=== PATIENT | female | born 1975 | race Caucasian/White ===

== ENCOUNTER 2019-06-23 19:06 | Observation (INO) ==
--- NOTE | 2019-06-23 19:59 | Emergency Department Note ---
Disposition Clinical Impression: Atrial fibrillation with RVR Disposition: Admitted As Inpatient Condition: Good Referrals: Keo Mcgovern DO [Primary Care Provider] - Forms: ED Satisfaction Letter Time of Disposition: 21:25 Arrhythmia/Palpitations HPI - General Chief Complaint: ED Arrhythmia/Palpitations Stated Complaint: Heart Flutters, Lightheaded Source: patient Limitations: no limitations Nursing Notes Reviewed: Yes Vital Signs Reviewed: Yes - History of Present Illness HPI Narrative: Patient is a 44-year-old female presented with palpitations. Patient states for the past few days she has been having intermittent episodes of palpitations with associated lightheaded and dizziness. This initially started on Tuesday, she was seen by her primary care provider yesterday and EKG was performed which was negative. She does have history of bigeminy in the past requiring ablation in 2012. She then had similar symptoms today with palpitations lightheaded and dizziness, she was seen at that local [facility] where they diagnosed where her with abdominal heart rhythm and told to go to the ER for further evaluation. Patient denies any chest pain, shortness of breath, fever or chills. She states that she is continuing to have these palpitations at this time. - Related Data Home Medications Medication Instructions Recorded Confirmed Multivit-Min/Iron/Folic Acid/K 1 each PO DAILY 06/23/19 06/23/19 [Adults Multivitamin Caplet] Allergies Allergy/AdvReac Type Severity Reaction Status Date / Time No Known Allergies Allergy Verified 06/23/19 19:28 All systems ED: reviewed and negative except as stated. Review of Systems: As Per HPI Constitutional: Denies: fever, chills Cardiovascular: Reports: palpitations. Denies: chest pain, dyspnea on exertion, syncope Respiratory: Denies: cough, dyspnea, wheezes Gastrointestinal: Denies: abdominal pain, nausea, vomiting Genitourinary: Denies: urgency Musculoskeletal: Denies: back pain Integumentary: Denies: rash Neurological: Denies: headache, confusion Past Medical History - Past Medical History Medical history: Reports: other Psychiatric history: Reports: no psych history - Social History Smoking Status: Never smoker Alcohol use: Reports: rarely Drug use: Reports: none Physical Exam - General Limitations: no limitations General appearance: alert - Head Head exam: atraumatic, normocephalic, normal inspection - Eye Eye exam: Present: normal appearance, PERRL, EOMI - ENT ENT exam: normal exam, normal oropharynx, mucous membranes moist - Neck Neck exam: Present: normal inspection, full ROM, trachea midline - Chest Chest inspection: Present: normal inspection, symmetric chest wall rise - Respiratory Respiratory exam: Present: normal lung sounds bilaterally - Cardiovascular Cardiovascular exam: Present: tachycardia, irregular rhythm - Abdominal Exam Abdominal exam: Present: soft, Non-Tender. Absent: tenderness, distention, guarding, rebound, rigidity - Extremities Exam Extremities exam: Present: normal inspection, full ROM. Absent: tenderness, ped al edema - Expanded Lower Extremity Exam Neurovascular/Tendon exam: Absent: motor deficit, sensory deficit, tendon deficit - Neurological Exam Neurological exam: Present: alert, oriented X3 - Psychiatric Psychiatric exam: Present: normal affect, normal mood - Skin Skin exam: Present: warm, dry, intact, normal color Course Vital Signs Temperature 98.7 F 06/23/19 19:28 Pulse Rate 110 06/23/19 19:28 Respiratory Rate 16 06/23/19 19:28 Blood Pressure 112/73 06/23/19 19:28 O2 Sat by Pulse Oximetry 98 06/23/19 19:28 Temperature 98.7 F 06/23/19 19:28 Pulse Rate 106 06/23/19 21:11 Respiratory Rate 15 06/23/19 21:11 Blood Pressure 104/77 06/23/19 21:11 O2 Sat by Pulse Oximetry 100 06/23/19 21:11 Oxygen Delivery Oxygen Delivery Room Air Arrhythmia/Palpitations - [facility] Narrative Medical decision making narrative: Patient is a 44-year-old female presenting with palpitations. On examination, patient is alert and 3, no acute distress. On EKG it appears the patient is in A. fib with RVR, first a flutter at times. Patient otherwise is normotensive and in no acute distress. Patient appears otherwise stable. Laboratory work including CBC, BMP, TSH and magnesium were performed. These labs were reviewed and unremarkable. Chest x-ray shows no acute intracardiac or pulmonary process. Patient was given a liter of fluids, we will also give the patient 20 of Cardizem as well as to the patient on Cardizem drip. Patient was also given 2 g of magnesium. Patient will be admitted for further cardiac workup as well as continued a drip ablation with RVR. On reevaluation, patients rate appears to be normal sinus rhythm with a rate of 75. Patient appears to be at this point in time out of atrial fibrillation and rate controlled. Patient does remain on her Cardizem drip. - Differential Diagnosis Differential Diagnosis: Likely: palpitations, anxiety, artial arrhythmia, supraventricular tachycardia, metabolic/electrolyte disturbance - Medical Records Medical records reviewed: Yes I reviewed the patient's medical records. - Lab Data Lab results reviewed: Yes I reviewed the patient's lab results. Result diagrams: 06/23/19 20:06 06/23/19 20:06 Lab Results 06/23/19 06/23/19 06/23/19 Range/Units 20:06 20:06 20:06 WBC 5.0 (4.3-11.1) K/mcL RBC 4.61 (3.82-4.97) M/mcL Hgb 15.1 (11.5-15.4) g/dL Hct 44.7 (35.3-44.9) % MCV 97.0 (83.0-100.0) fL MCH 32.8 (28.0-33.3) pg MCHC 33.8 (31.6-35.5) g/dL RDW 11.6 (11.5-14.5) % Plt Count 204 (140-400) K/mcL MPV 10.7 (9.4-12.4) fL Immature Gran % 0.2 (0-4) % Seg Neutrophils % 57.5 % Lymphocytes % 31.4 % Monocytes % 9.1 % Eosinophils % 1.0 % Basophils % 0.8 % Neutrophils # 2.9 (1.6-8.9) K/mcL Lymphocytes # 1.6 (0.6-4.6) K/mcL Monocytes # 0.5 (0.0-1.3) K/mcL Eosinophils # 0.1 (0.0-0.6) K/mcL Basophils # 0.0 (0.0-0.2) K/mcL PT 11.1 (9.4-12.1) Seconds INR 1.0 APTT 30.3 (26.0-36.0) Seconds Sodium 138 (136-145) mEq/L Potassium 3.5 (3.5-5.1) mEq/L Chloride 105 (98-107) mEq/L Carbon Dioxide 25 (23-29) mEq/L BUN 12 (6-20) mg/dL Creatinine 0.71 (0.60-1.20) mg/dL Est GFR ( Amer) > 60 (> 60) Est GFR (Non-Af Amer) > 60 (> 60) BUN/Creatinine Ratio 17 (6-26) Glucose 99 (70-105) mg/dL Calculated Osmolality 286 (280-300) Calcium 9.6 (8.6-10.3) mg/dL Magnesium (1.6-2.6) mg/dL Troponin I < 0.03 (< 0.04) ng/mL TSH 3.895 (0.340-5.600) mcIU/mL 06/23/19 Range/Units 20:06 WBC (4.3-11.1) K/mcL RBC (3.82-4.97) M/mcL Hgb (11.5-15.4) g/dL Hct (35.3-44.9) % MCV (83.0-100.0) fL MCH (28.0-33.3) pg MCHC (31.6-35.5) g/dL RDW (11.5-14.5) % Plt Count (140-400) K/mcL MPV (9.4-12.4) fL Immature Gran % (0-4) % Seg Neutrophils % % Lymphocytes % % Monocytes % % Eosinophils % % Basophils % % Neutrophils # (1.6-8.9) K/mcL Lymphocytes # (0.6-4.6) K/mcL Monocytes # (0.0-1.3) K/mcL Eosinophils # (0.0-0.6) K/mcL Basophils # (0.0-0.2) K/mcL PT (9.4-12.1) Seconds INR APTT (26.0-36.0) Seconds Sodium (136-145) mEq/L Potassium (3.5-5.1) mEq/L Chloride (98-107) mEq/L Carbon Dioxide (23-29) mEq/L BUN (6-20) mg/dL Creatinine (0.60-1.20) mg/dL Est GFR ( Amer) (> 60) Est GFR (Non-Af Amer) (> 60) BUN/Creatinine Ratio (6-26) Glucose (70-105) mg/dL Calculated Osmolality (280-300) Calcium (8.6-10.3) mg/dL Magnesium 2.1 (1.6-2.6) mg/dL Troponin I (< 0.04) ng/mL TSH (0.340-5.600) mcIU/mL - Radiology Data Radiology results reviewed: Yes I reviewed the patient's radiology results. Chest X-Ray 06/23/19 19:32 IMPRESSION: No acute cardiopulmonary disease. D/ / Quintin Gonzalez MD / Quintin Gonzalez MD Interpreting Provider: Quintin Gonzalez MD - EKG Data EKG attestation: Yes I reviewed and interpreted this EKG. EKG results narrative: EKG performed at 1939 ventricular rate of 162, irregularly irregular rhythm with normal axis, no ST segment elevation, there is diffuse depression in lead V2 through V6, most likely rate dependent, with T-wave inversion in V3. Appears to be atrial fibrillation with RVR. When compared to old EKG performed at 2013, this is a significant difference as the EKG shows a 14 was normal sinus rhythm.
[2019-06-23] MEDS ORDERED: 0.9 % Sodium Chloride 1,000 ML IVC ONE (20:08)
[2019-06-23] MEDS: Aspirin 325 MG TABLET PO ONE ×2 (20:23→20:27)
[2019-06-23 20:41] LABS: Basophils % 0.8 %; Eosinophils # 0.1 K/mcL (0.0-0.6); Hematocrit 44.7 % (35.3-44.9); Hemoglobin 15.1 g/dL (11.5-15.4); Immature Granulocytes % 0.2 % (0-4); Lymphocytes # 1.6 K/mcL (0.6-4.6); Lymphocytes % 31.4 %; Mean Corpuscular HGB Conc 33.8 g/dL (31.6-35.5); Mean Corpuscular Hemoglobin 32.8 pg (28.0-33.3); Mean Platelet Volume 10.7 fL (9.4-12.4); Monocytes # 0.5 K/mcL (0.0-1.3); Monocytes % 9.1 %; Neutrophils # 2.9 K/mcL (1.6-8.9); Platelet Count 204 K/mcL (140-400); Red Blood Count 4.61 M/mcL (3.82-4.97); Red Cell Distribution Width 11.6 % (11.5-14.5); Segmented Neutrophils % 57.5 %
[2019-06-23 20:50] LABS: Prothrombin Time 11.1 Seconds (9.4-12.1)
[2019-06-23 20:52] LABS: Activated Partial Thrombo Time 30.3 Seconds (26.0-36.0)
[2019-06-23 20:58] LABS: BUN/Creatinine Ratio 17 (6-26); Blood Urea Nitrogen 12 mg/dL (6-20); Calcium 9.6 mg/dL (8.6-10.3); Carbon Dioxide 25 mEq/L (23-29); Chloride 105 mEq/L (98-107); Glucose 99 mg/dL (70-105); Osmolality,Calculated 286 (280-300); Potassium 3.5 mEq/L (3.5-5.1); Sodium 138 mEq/L (136-145); eGFR For African Americans > 60 (> 60); eGFR For Non-African Americans > 60 (> 60)
--- NOTE | 2019-06-23 20:58 | Emergency Department Note ---
Disposition Clinical Impression: Atrial fibrillation with RVR Disposition: Admitted As Inpatient Condition: Good Referrals: Keo Mcgovern DO [Primary Care Provider] - Forms: ED Satisfaction Letter Time of Disposition: 21:39 Arrhythmia/Palpitations HPI - General Chief Complaint: ED Arrhythmia/Palpitations Stated Complaint: Heart Flutters, Lightheaded Time Seen by Provider: 06/23/19 20:08 Source: patient Limitations: no limitations Nursing Notes Reviewed: Yes Vital Signs Reviewed: Yes - Related Data Home Medications Medication Instructions Recorded Confirmed Multivit-Min/Iron/Folic Acid/K 1 each PO DAILY 06/23/19 06/23/19 [Adults Multivitamin Caplet] Allergies Allergy/AdvReac Type Severity Reaction Status Date / Time No Known Allergies Allergy Verified 06/23/19 19:28 Past Medical History - Past Medical History Medical history: Reports: other Psychiatric history: Reports: no psych history - Social History Smoking Status: Never smoker Alcohol use: Reports: rarely Drug use: Reports: none Physical Exam - General Limitations: no limitations General appearance: alert Course Vital Signs Temperature 98.7 F 06/23/19 19:28 Pulse Rate 110 06/23/19 19:28 Respiratory Rate 16 06/23/19 19:28 Blood Pressure 112/73 06/23/19 19:28 O2 Sat by Pulse Oximetry 98 06/23/19 19:28 Temperature 98.7 F 06/23/19 19:28 Pulse Rate 106 06/23/19 21:11 Respiratory Rate 15 06/23/19 21:11 Blood Pressure 104/77 06/23/19 21:11 O2 Sat by Pulse Oximetry 100 06/23/19 21:11 Oxygen Delivery Oxygen Delivery Room Air Arrhythmia/Palpitations - Lab Data Result diagrams: 06/23/19 20:06 06/23/19 20:06 Lab Results 06/23/19 06/23/19 06/23/19 Range/Units 20:06 20:06 20:06 WBC 5.0 (4.3-11.1) K/mcL RBC 4.61 (3.82-4.97) M/mcL Hgb 15.1 (11.5-15.4) g/dL Hct 44.7 (35.3-44.9) % MCV 97.0 (83.0-100.0) fL MCH 32.8 (28.0-33.3) pg MCHC 33.8 (31.6-35.5) g/dL RDW 11.6 (11.5-14.5) % Plt Count 204 (140-400) K/mcL MPV 10.7 (9.4-12.4) fL Immature Gran % 0.2 (0-4) % Seg Neutrophils % 57.5 % Lymphocytes % 31.4 % Monocytes % 9.1 % Eosinophils % 1.0 % Basophils % 0.8 % Neutrophils # 2.9 (1.6-8.9) K/mcL Lymphocytes # 1.6 (0.6-4.6) K/mcL Monocytes # 0.5 (0.0-1.3) K/mcL Eosinophils # 0.1 (0.0-0.6) K/mcL Basophils # 0.0 (0.0-0.2) K/mcL PT 11.1 (9.4-12.1) Seconds INR 1.0 APTT 30.3 (26.0-36.0) Seconds Sodium 138 (136-145) mEq/L Potassium 3.5 (3.5-5.1) mEq/L Chloride 105 (98-107) mEq/L Carbon Dioxide 25 (23-29) mEq/L BUN 12 (6-20) mg/dL Creatinine 0.71 (0.60-1.20) mg/dL Est GFR ( Amer) > 60 (> 60) Est GFR (Non-Af Amer) > 60 (> 60) BUN/Creatinine Ratio 17 (6-26) Glucose 99 (70-105) mg/dL Calculated Osmolality 286 (280-300) Calcium 9.6 (8.6-10.3) mg/dL Magnesium (1.6-2.6) mg/dL Troponin I < 0.03 (< 0.04) ng/mL TSH 3.895 (0.340-5.600) mcIU/mL 06/23/19 Range/Units 20:06 WBC (4.3-11.1) K/mcL RBC (3.82-4.97) M/mcL Hgb (11.5-15.4) g/dL Hct (35.3-44.9) % MCV (83.0-100.0) fL MCH (28.0-33.3) pg MCHC (31.6-35.5) g/dL RDW (11.5-14.5) % Plt Count (140-400) K/mcL MPV (9.4-12.4) fL Immature Gran % (0-4) % Seg Neutrophils % % Lymphocytes % % Monocytes % % Eosinophils % % Basophils % % Neutrophils # (1.6-8.9) K/mcL Lymphocytes # (0.6-4.6) K/mcL Monocytes # (0.0-1.3) K/mcL Eosinophils # (0.0-0.6) K/mcL Basophils # (0.0-0.2) K/mcL PT (9.4-12.1) Seconds INR APTT (26.0-36.0) Seconds Sodium (136-145) mEq/L Potassium (3.5-5.1) mEq/L Chloride (98-107) mEq/L Carbon Dioxide (23-29) mEq/L BUN (6-20) mg/dL Creatinine (0.60-1.20) mg/dL Est GFR ( Amer) (> 60) Est GFR (Non-Af Amer) (> 60) BUN/Creatinine Ratio (6-26) Glucose (70-105) mg/dL Calculated Osmolality (280-300) Calcium (8.6-10.3) mg/dL Magnesium 2.1 (1.6-2.6) mg/dL Troponin I (< 0.04) ng/mL TSH (0.340-5.600) mcIU/mL Attestation Statement - Attestation Attestation: I have seen this patient with the resident physician, I have personally evaluat ed this patient. I had reviewed the chart and document dictation by the resident physician and aM in agreement with the information documented by the resident physician. Please see documentation by the resident physician for complete chart including past medical history, family medical history, review of systems, current history and physical and laboratory and imaging studies. I was present for all procedures, provided direct supervision for all procedures, was present for the entirety of all procedures and provided direct guidance during the procedures. Please see documentation by the resident physician for any procedures performed. I have reviewed all interpretations of EKGs, and reviewed all EKGs performed on patient's as well. I have also reviewed reports of imaging as provided by radiology. Patient presented emergency department with chief complaint of palpitations fluttering sensation in her chest with some mild chest discomfort. She has had this off and on for a few days, she saw her primary care doctor, and EKG in the office a couple days ago which showed no acute findings, today she started experiencing this again, went to the fire station, was told that she was an abnormal heart rhythm and sent to the ER. Patient denies recent fevers chills cough sputum production travel immobilization leg pain or leg swelling. No significant chest pain. On presentation, she chronically is in A. fib with RVR, on exam with irregularly irregular and tachycardic heart rhythm. She is however alert awake and talking smiling nontoxic in appearance. Cranial nerves are intact. No JVD. Thyromegaly. Lungs are clear. Abdomen soft and nontender. No peripheral edema no clinical evidence of DVT skin is warm dry without rash or petechiae. EKG demonstrates A. fib with RVR, heart rate of 162, with some nonspecific T- wave abnormality within leads V3 through V6, biphasic appearance with slight downsloping but no ST elevation. No evidence of acute ST segment elevation or infarction. Patient had an IV placed, she was given IV fluids IV diltiazem, and IV magne sium, for new onset A. fib RVR. Basic laboratory studies were ordered, chest x-ray was ordered. Basic laboratory studies were all within acceptable limits cardiac enzymes negative TSH within acceptable limits. Heart rate trended downward with the above medications into the 80s. Patient was admitted to the hospital for further evaluation and management of chest discomfort, new onset A. fib with RVR. Total critical care times run by myself excluding any procedures performed was 30 minutes.
[2019-06-23 20:59] LABS: Troponin I < 0.03 ng/mL (< 0.04)
[2019-06-23 21:12] LABS: Thyroid Stimulating Hormone 3.895 mcIU/mL (0.340-5.600)
--- NOTE | 2019-06-23 23:36 | Internal Med History&Physical ---
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 She says that over the past week she has been feeling episodes of palpitations associated with lightheadedness and dizziness but no chest pain or dyspnea. Since there were transient and she thought nothing of it and went to her PCP yesterday who referred her to cardiology. Today the symptoms recurred and were more persistent which prompted concern so she went to her local fire station to check her heart rhythm apparently and she was told to go to the ER for further evaluation because it seemed abnormal. Arrival to the ER she was found to be in A. fib with RVR. She remained hemodynamically stable and her blood work was within normal limits. She was given a loading dose of diltiazem and subsequently started on a drip. Shortly after she converted to normal sinus rhythm in the 70s and has been doing well since. She is admitted for further observation. The time of my assessment she reports feeling well and has no complaints whatsoever. Vitals: Reviewed General: Well-developed white woman sitting up in bed in no acute distress. Skin: Warm and supple. HEENT: Moist mucous membranes. No conjunctivae pallor. Neck: No lymphadenopathy. No JVD. No carotid bruits. No palpable thyroid. Chest: Normal thoracic expansion. Normal breath sounds. Clear to auscultation. Heart: Normal S1 & S2; rhythmic. No rubs or murmurs. Abdomen: Non-distended, soft and non-tender to palpation. No peritoneal reaction. Extremities: No clubbing, cyanosis or edema. No calf tenderness. Normal distal pulses. Neurological: Awake, alert and oriented to person, place and time. No focal deficits. Psych: Affect appropriate. Assessment/Plan 1. New-onset atrial fibrillation: Paroxysmal. The patient is not on any medications that could potentially induce this and she is clinically/metabolically euthyroid. She does have the antecedent of an underlying arrhythmia requiring ablation and it is possible this could be a predisposing factor. [id number] score is 1. She is now back to normal sinus rhythm. Will not start anticoagulation but may perhaps place her on aspirin for now. Will get a TTE to rule out valvular pathology and she will benefit from cardiology consultation given her prior history. Past Med Surg Social Fam HX - Past Medical History Medical history: other Additional medical history: hx PVC Psychiatric history: no psych history - Past Surgical History Surgical History: Additional surgical history: 3x cardiac ablations - Social History Smoking Status: Never smoker Smokeless Tobacco Status: No Alcohol use: rarely Drug use: none - Family History Father Age: 77 Hx Family Cardiac Disorders: Yes (A-Fib, pacemaker) Mother Hx Family Cardiac Disorders: Yes (HTN) Hx Family Endocrine Disorder: Yes (HLD) Maternal Grandmother Hx Family Cardiac Disorders: Yes (RI) Maternal Grandfather Hx Family Cardiac Disorders: Yes (RI) Internal Medicine - H&P: Meds Multivit-Min/Iron/Folic Acid/K [Adults Multivitamin Caplet] 1 each PO DAILY 06/23/19 [History] Allergy/AdvReac Type Severity Reaction Status Date / Time No Known Allergies Allergy Verified 06/23/19 19:28 All Systems PM: A 10-system review of systems was performed and is negative for pertinent findings except as documented above in the HPI. - Constitutional Vitals: Temp Pulse Resp BP Pulse Ox 98.3 F 70 13 109/72 99 06/23/19 22:52 06/23/19 22:52 06/23/19 22:52 06/23/19 22:52 06/23/19 22:52 Exam: . Internal Med - H&P Results - Labs CBC & Chem 7: 06/23/19 20:06 06/23/19 20:06 Labs: Short CBC 06/23/19 Range/Units 20:06 WBC 5.0 (4.3-11.1) K/mcL Hgb 15.1 (11.5-15.4) g/dL Hct 44.7 (35.3-44.9) % Plt Count 204 (140-400) K/mcL Neutrophils # 2.9 (1.6-8.9) K/mcL BMP 06/23/19 20:06 Sodium 138 Potassium 3.5 Chloride 105 Carbon Dioxide 25 BUN 12 Creatinine 0.71 Glucose 99 Calcium 9.6 Cardiac Enzymes 06/23/19 Range/Units 20:06 Troponin I < 0.03 (< 0.04) ng/mL - Impressions ITS Impressions Chest X-Ray 06/23/19 19:32 IMPRESSION: No acute cardiopulmonary disease. D/ / Quintin Gonzalez MD / Quintin Gonzalez MD Interpreting Provider: Quintin Gonzalez MD - Time Spent With Patient Total time spent is greater than 50% in coordination of care (as documented) at patient's floor/unit and/or counseling patient:
--- NOTE | 2019-06-24 07:52 | Internal Med Progress Note ---
Hospitalist Progress Note - Encounter Date of Encounter: 06/24/19 Time of Encounter: 10:00 - Subjective Interval History: No acute events overnight - Exam Vitals: Temp Pulse Resp BP Pulse Ox 98.2 F 61 14 92/54 96 06/24/19 04:04 06/24/19 04:04 06/24/19 04:04 06/24/19 04:04 06/24/19 04:04 Exam: General appearance: Present: A&O X 3, no acute distress Head exam: Present: normocephalic Respiratory exam: Present: CTAB. Absent: accessory muscle use, rales, rhonchi, wheezes Cardiovascular exam: Present: RRR, +S1, +S2. Absent: diastolic murmur, gallop, rubs, systolic murmur GI/Abdominal exam: Soft, NT, ND, +BS Extremities exam: Absent: pedal edema Neurological exam: Alert to person and place - Assessment and Plan (1) Atrial fibrillation with RVR Current Visit: Yes Status: Acute Assessment and Plan: Pt came in with intermittent palpitations and EKG demonstrated atrial fibrillation. Was started on a cardizem drip which has been discontinued. CHADSVASC score is 1 so no indication for anticoagulation Seen by cardiology. recommend to continue on telemetry and start metoprolol and aspirin Obtain 2D echo. Outpatient stress test (2) DVT prophylaxis Current Visit: Yes Status: Acute Assessment and Plan: Heparin sc - Time Spent with Patient Total time spent is greater than 50% in coordination of care (as documented) at patient's floor/unit and/or counseling patient: Internal Medicine: Result - Labs CBC & Chem 7: 06/23/19 20:06 06/23/19 20:06 Labs: Short CBC 06/23/19 Range/Units 20:06 WBC 5.0 (4.3-11.1) K/mcL Hgb 15.1 (11.5-15.4) g/dL Hct 44.7 (35.3-44.9) % Plt Count 204 (140-400) K/mcL Neutrophils # 2.9 (1.6-8.9) K/mcL BMP 06/23/19 20:06 Sodium 138 Potassium 3.5 Chloride 105 Carbon Dioxide 25 BUN 12 Creatinine 0.71 Glucose 99 Calcium 9.6 Cardiac Enzymes 06/23/19 Range/Units 20:06 Troponin I < 0.03 (< 0.04) ng/mL - ABG Interpretation ABG results: PT/INR, D-dimer PT 11.1 Seconds (9.4-12.1) 06/23/19 20:06 - Impressions Impressions Chest X-Ray 06/23/19 19:32 IMPRESSION: No acute cardiopulmonary disease. D/ / Quintin Gonzalez MD / Quintin Gonzalez MD Interpreting Provider: Quintin Gonzalez MD Consult Discharge Plan - Plan Referrals: Keo Mcgovern DO [Primary Care Provider] -
[2019-06-24] MEDS ORDERED: Aspirin 81 MG TAB.CHEW PO SCH (09:00)
--- NOTE | 2019-06-24 13:29 | Cardiology Consult Note ---
Date of Encounter: 06/24/19 Time of Encounter: 13:27 Assessment and Plan (1) PAF (paroxysmal atrial fibrillation) Current Visit: Yes Status: Acute 44-year-old female with intermittent palpitations for the last few days. Currently sinus rhythm, ECGs demonstrated atrial fibrillation. Chads-vasc score is 1, female. Recommend continue telemetry. Check 2-D echocardiogram. Standard stress test, okay to do as an outpatient. Aspirin 325 mg daily. BP marginal, will try low dose metoprolol tartrate. If no significant findings on TTE and no further AF, then likely okay for d/c tomorrow. Discussion w patient/family: The assessment and plan as outlined above was discussed with the patient and/or family members who expressed understanding and agreement. All questions were answered. Thank you for involving us in the care of your patient. Please call with any questions. History of Present Illness Consult date: 06/24/19 Requesting physician: Kay Alvarado Consult reason: PAF Chief complaint: Palpitations History of present illness: Ms. Lucia is a 44 year old female with a history of PVCs status post PVC ablation in 2012 (3 separate procedures). Since with complaints of intermittent palpitations and lightheadedness over the last few days. Symptoms worsen yesterday, which brought her to the ER. ECG demonstrated atrial fibrillation with RVR. She was placed on Cardizem, spontaneously converted to sinus rhythm during stay. CHADS-VASc 1 (FM). CBC, BMP, TSH normal. Troponin negative. Past Med Surg Social Fam HX - Past Medical History Medical history: other Additional medical history: hx PVC Psychiatric history: no psych history - Past Surgical History Surgical History: Additional surgical history: 3x cardiac ablations - Social History Smoking Status: Never smoker Smokeless Tobacco Status: No Alcohol use: rarely Drug use: none - Family History Father Age: 77 Hx Family Cardiac Disorders: Yes (A-Fib, pacemaker) Mother Hx Family Cardiac Disorders: Yes (HTN) Hx Family Endocrine Disorder: Yes (HLD) Maternal Grandmother Hx Family Cardiac Disorders: Yes ([place]) Maternal Grandfather Hx Family Cardiac Disorders: Yes (NV) Medications and Allergies Multivit-Min/Iron/Folic Acid/K [Adults Multivitamin Caplet] 1 each PO DAILY 06/23/19 [History] Allergy/AdvReac Type Severity Reaction Status Date / Time No Known Allergies Allergy Verified 06/24/19 12:16 All Systems Review: The remainder of the systems were reviewed and are negative - Cardiovascular Cardiovascular: as per HPI, palpitations, rapid heart rate Physical Examination Vital Signs, Last 4 Hours Temp Pulse Resp BP Pulse Ox 06/24/19 10:36 98.1 F 56 18 106/69 99 General: Conversant, No Apparent Distress HEENT: Atraumatic, Normocephaly, Mucus Membranes Moist Neck: No JVD, Normal carotid pulses Cardiac: Reg Rate and Rhythm, Normal S1 and S2, No Murmur Lungs: Normal Breath Sounds, No Wheeze, Rales, Rhonchi Neuro: Alert and responsive, No focal deficits noted Abdomen: Soft, Non-Tender Skin: No rashes noted on visualized skin Musculoskeletal: No Chest Wall Tenderness Extremities: No Clubbing, No Cyanosis, No Edema Results 06/23/19 20:06 06/23/19 20:06 Lab Results 06/23/19 06/23/19 06/23/19 20:06 20:06 20:06 WBC 5.0 Hgb 15.1 Hct 44.7 Plt Count 204 INR 1.0 APTT 30.3 Sodium 138 Potassium 3.5 Chloride 105 Carbon Dioxide 25 BUN 12 Creatinine 0.71 Glucose 99 Calcium 9.6 Magnesium Troponin I < 0.03 TSH 3.895 06/23/19 20:06 WBC Hgb Hct Plt Count INR APTT Sodium Potassium Chloride Carbon Dioxide BUN Creatinine Glucose Calcium Magnesium 2.1 Troponin I TSH - EKG Interpretation EKG results cardiology: personally reviewed Consult Discharge Plan - Plan Referrals: Keo Mcgovern DO [Primary Care Provider] -
[2019-06-25 05:47] LABS: Eosinophils # 0.1 K/mcL (0.0-0.6); Eosinophils % 1.9 %; Hematocrit 39.4 % (35.3-44.9); Lymphocytes # 1.4 K/mcL (0.6-4.6); Lymphocytes % 33.9 %; Mean Corpuscular Hemoglobin 32.6 pg (28.0-33.3); Mean Corpuscular Volume 98.7 fL (83.0-100.0); Mean Platelet Volume 10.8 fL (9.4-12.4); Monocytes # 0.4 K/mcL (0.0-1.3); Monocytes % 9.4 %; Neutrophils # 2.2 K/mcL (1.6-8.9); Platelet Count 162 K/mcL (140-400); Red Blood Count 3.99 M/mcL (3.82-4.97); Red Cell Distribution Width 11.6 % (11.5-14.5); Segmented Neutrophils % 53.8 %; White Blood Count 4.1 K/mcL (4.3-11.1)
[2019-06-25 06:03] LABS: BUN/Creatinine Ratio 15 (6-26); Blood Urea Nitrogen 12 mg/dL (6-20); Calcium 8.4 mg/dL (8.6-10.3); Carbon Dioxide 26 mEq/L (23-29); Chloride 106 mEq/L (98-107); Glucose 98 mg/dL (70-105); Osmolality,Calculated 286 (280-300); Phosphorous 3.9 mg/dL (2.7-4.5); Potassium 3.9 mEq/L (3.5-5.1); Sodium 138 mEq/L (136-145); eGFR For African Americans > 60 (> 60); eGFR For Non-African Americans > 60 (> 60)
[2019-06-25 07:13] VITALS: BP 99/63
--- NOTE | 2019-06-25 08:38 | Cardiology Progress Note ---
Date of Encounter: 06/25/19 Time of Encounter: 08:35 Assessment and Plan (1) PAF (paroxysmal atrial fibrillation) Current Visit: Yes Status: Acute 44-year-old female with intermittent palpitations for the last few days. Currently sinus rhythm, ECGs demonstrated atrial fibrillation. Chads-vasc score is 1, female. Low CVA risk. Recommend ASA only, 325mg daily. Standard stress test, okay to do as an outpatient. TTE LVEF 60-65%. Normal LV chamber size, wall thickness and function. Mild tricuspid regurgitation. BP marginal. Continue low dose metoprolol tartrate. Cardiology signing off. Reconsult PRN. Will coordinate outpt follow-up in 3-4 weeks. Discussion w patient/family: The assessment and plan as outlined above was discussed with the patient and/or family members who expressed understanding and agreement. All questions were answered. Thank you for involving us in the care of your patient. Please call with any questions. I will discuss all the above with Dr. Wells and make changes as necessary. Subjective Principal diagnosis: PAF Interval history: Occasional palpitations overnight. Maintaining SR. Objective Vital Signs, Last 4 Hours Temp Pulse Resp BP Pulse Ox 06/25/19 07:05 98.1 F 65 16 99/63 97 Vital Signs Temp Pulse Resp BP Pulse Ox 06/25/19 07:05 98.1 F 65 16 99/63 97 06/25/19 03:59 98 F 66 16 94/58 99 06/24/19 23:09 99 F 63 16 103/62 98 06/24/19 19:21 97.9 F 53 16 97/59 98 06/24/19 15:02 98.2 F 62 16 112/76 98 06/24/19 10:36 98.1 F 56 18 106/69 99 Intake and Output 06/24/19 06/25/19 06/25/19 23:59 07:59 15:59 Intake Total 300 / 540 Output Total 900 / 1900 Balance -600 / -1360 Intake: Oral 300 / 540 Output: Urine 900 / 1900 Other: Weight 62.9 kg General: Conversant, No Apparent Distress HEENT: Atraumatic, Normocephaly, Mucus Membranes Moist Neck: No JVD, Normal carotid pulses Cardiac: Reg Rate and Rhythm, Normal S1 and S2, No Murmur Lungs: Normal Breath Sounds, No Wheeze, Rales, Rhonchi Neuro: Alert and responsive, No focal deficits noted Abdomen: Soft, Non-Tender Skin: No rashes noted on visualized skin Musculoskeletal: No Chest Wall Tenderness Extremities: No Clubbing, No Cyanosis, No Edema, Normal Pulses Results 06/25/19 05:13 06/25/19 05:13 Lab Results 06/25/19 06/25/19 05:13 05:13 WBC 4.1 L Hgb 13.0 D Hct 39.4 Plt Count 162 Sodium 138 Potassium 3.9 Chloride 106 Carbon Dioxide 26 BUN 12 Creatinine 0.79 Glucose 98 Calcium 8.4 L Magnesium 2.0 Short CBC 06/25/19 Range/Units 05:13 WBC 4.1 L (4.3-11.1) K/mcL Hgb 13.0 D (11.5-15.4) g/dL Hct 39.4 (35.3-44.9) % Plt Count 162 (140-400) K/mcL Neutrophils # 2.2 (1.6-8.9) K/mcL BMP 06/25/19 Range/Units 05:13 Sodium 138 (136-145) mEq/L Potassium 3.9 (3.5-5.1) mEq/L Chloride 106 (98-107) mEq/L Carbon Dioxide 26 (23-29) mEq/L BUN 12 (6-20) mg/dL Creatinine 0.79 (0.60-1.20) mg/dL Glucose 98 (70-105) mg/dL Calcium 8.4 L (8.6-10.3) mg/dL Impressions Echocardiogram 06/23/19 22:58 Impressions: LVEF 60-65%. Normal LV chamber size, wall thickness and function. Normal left ventricular diastolic function. Normal right ventricular structure and function. Mild tricuspid regurgitation. No pulmonary hypertension. Left Ventricular Wall Motion: Rest Echo Findings All wall segments showed normal motion. Findings: Study Quality * Technically adequate exam. ECG Findings * Normal sinus rhythm. Left Ventricle * LVEF 60-65%. * Normal LV chamber size, wall thickness and function. * Normal left ventricular diastolic function. Right Ventricle * Normal right ventricular structure and function. Left Atrium * Normal left atrial size. Right Atrium * Normal right atrial size. Interatrial Septum * No evidence of PFO by color Doppler. Aortic Valve * Aortic valve not well visualized. * No aortic regurgitation. * No aortic stenosis. Mitral Valve * Normal mitral valve structure and function. * No mitral regurgitation. * No mitral stenosis. Tricuspid Valve * Normal tricuspid valve structure. * Mild tricuspid regurgitation. * No pulmonary hypertension. Pulmonic Valve * Pulmonic valve not well visualized. * No pulmonic regurgitation. Aorta * Normally sized aortic root. Pericardium * The pericardium appears normal. IVC * Normal IVC dimensions and inspiratory collapse. Pulmonary Artery * Normal visualized portions of the main pulmonary artery. Active Medications Aspirin (Aspirin) 325 mg PO DAILY [facility] Stop: 12/25/19 09:01 Last Admin: 06/25/19 08:14 Dose: 325 mg Documented by: Metoprolol Tartrate (Lopressor) 12.5 mg PO BID [facility] Stop: 12/24/19 13:46 Last Admin: 06/24/19 23:23 Dose: 12.5 mg Documented by: - Imaging and Cardiology Echo: report reviewed Consult Discharge Plan - Plan Referrals: Keo Mcgovern DO [Primary Care Provider] -
--- NOTE | 2019-06-25 08:52 | Discharge Summary ---
Date of Encounter: 06/25/19 Time of Encounter: 08:51 - Discharge Diagnosis (1) Atrial fibrillation with RVR Priority: Primary Status: Acute Assessment and Plan: 44-year-old woman who reports a prior history of symptomatic bigeminy that required 3 sessions of ablation in 2012 and has been doing well since then. She says that over the past week she has been feeling episodes of palpitations associated with lightheadedness and dizziness but no chest pain or dyspnea. Since there were transient and she thought nothing of it and went to her PCP yesterday who referred her to cardiology. Today the symptoms recurred and were more persistent which prompted concern so she went to her local fire station to check her heart rhythm apparently and she was told to go to the ER for further evaluation because it seemed abnormal. Arrival to the ER she was found to be in A. fib with RVR. She came in with intermittent palpitations secondary to afib with RVR. She was started on a cardizem drip which has been discontinued. CHADSVASC score is 1 so no indication for anticoagulation. She was seen by cardiology who recommended to continue on telemetry and start metoprolol and aspirin. 2D echo was performed and showed no acute wall motion abnormalities, with preserved EF. She will follow up with cardio for an outpatient stress test and continue aspirin and metoprolol. She was discharged in a stable condition (2) DVT prophylaxis Priority: Primary Status: Acute Hospital course: Ms. Lucia is a 44 year old female - Time Spent with Patient Total time spent providing and/or coordinating discharge services: - Discharge Medications Prescriptions: New Metoprolol [Lopressor] 12.5 mg PO BID #60 tablet Aspirin 325 mg PO DAILY #60 tablet Continued Multivit-Min/Iron/Folic Acid/K [Adults Multivitamin Caplet] 1 each PO DAILY Home Medications: Multivit-Min/Iron/Folic Acid/K [Adults Multivitamin Caplet] 1 each PO DAILY 06/23/19 [History] Aspirin 325 mg PO DAILY #60 tablet 06/25/19 [Rx] Metoprolol [Lopressor] 12.5 mg PO BID #60 tablet 06/25/19 [Rx] Allergies/Adverse Reactions: Allergy/AdvReac Type Severity Reaction Status Date / Time No Known Allergies Allergy Verified 06/24/19 12:16 Date of admission: 06/23/19 22:01 Primary care physician: Keo Mcgovern DO Consults: 06/23/19 23:28 Consult to Cardiology [CONS] Routine Comment: Consulting Provider: Cardiology Patti Reason for Consult: New onset afib in a patient with history of symptomatic bigeminy that required ablation Call Completed: No - Constitutional Vitals: Temp Pulse Resp BP Pulse Ox 98.1 F 65 16 99/63 97 06/25/19 07:05 06/25/19 07:05 06/25/19 07:05 06/25/19 07:05 06/25/19 07:05 Exam: General appearance: Present: A&O X 3, no acute distress Head exam: Present: normocephalic Respiratory exam: Present: CTAB. Absent: accessory muscle use, rales, rhonchi, wheezes Cardiovascular exam: Present: RRR, +S1, +S2. Absent: diastolic murmur, gallop, rubs, systolic murmur GI/Abdominal exam: Soft, NT, ND, +BS Extremities exam: Absent: pedal edema Neurological exam: Alert to person and place - Patient Status Disposition: Home, Self-Care Condition: Good - Discharge Instructions Follow Up With: Keo Mcgovern DO [Primary Care Provider] - (Web request sent 06/25/2019) Thomas Loera AUTO LOCATOR [Advanced Practice Nurse] - (Cardiology office will call you to schedule follow up appointment )
[2019-06-25] MEDS ORDERED: Aspirin 325 MG TABLET PO SCH (09:00)
--- NOTE | 2019-06-28 11:11 | Electrocardiograph Report ---
[facility] Test Date: 2019-06-23 Pat Name: Monique Lucia Department: 104 Room: 2A38 Gender: F Kettle Cook: Emil : 1975 Requested By: Mayte Cunningham Order Number: [id number] Reading MD: Manny Brantley Measurements Intervals [place] Rate: 141 P: VT: 0 QRS: 59 QRSD: 93 T: 44 QT: 284 QTc: 366 Interpretive Statements ATRIAL FIBRILLATION WITH RAPID VENTRICULAR RESPONSE NONSPECIFIC ST & T-WAVE ABNORMALITY ABNORMAL RHYTHM ECG Electronically Signed On 06-28-2019 11:10:03 EDT by Manny Brantley
--- NOTE | 2019-06-28 11:12 | Electrocardiograph Report ---
[facility] Test Date: 2019-06-23 Pat Name: Monique Lucia Department: 104 Room: 2A38 Gender: F Edi Consultant: Emil : 1975 Requested By: Mayte Cunningham Order Number: [id number] Reading MD: Manny Brantley Measurements Intervals [place] Rate: 162 P: IA: 0 QRS: 56 QRSD: 82 T: 31 QT: 267 QTc: 357 Interpretive Statements ATRIAL FIBRILLATION WITH RAPID VENTRICULAR RESPONSE NONSPECIFIC ST & T-WAVE ABNORMALITY ABNORMAL RHYTHM ECG Electronically Signed On 06-28-2019 11:10:10 EDT by Manny Brantley
== END 2019-06-25 10:16 | disposition home or self-care (01) ==
LOC: 2ANU 19:06 → EMEROOARM 19:06 → 2ANU 22:30
PROVIDERS: ADMIT Internal Medicine; ATTEND Student in an Organized Health Care Education/Training Program